=== PATIENT | male | born 1975 | race Caucasian/White ===

== ENCOUNTER 2017-07-06 15:12 | Emergency (ER) | payer SELFPAY ==
[2017-07-06 15:23] VITALS: BP 146/95; PULSE 81; TEMP 98.5; BMI 44.6
--- NOTE | 2017-07-06 16:31 | PDOC ---
History of Present Illness - General Chief Complaint: Eye Problem Stated Complaint: EYE PROBLEM Time Seen by Provider: 07/06/17 15:50 - History of Present Illness Initial Comments: 07/06/17 16:22 CHIEF COMPLAINT: R eye problem HISTORY OF PRESENT ILLNESS: 41 yo M with no significant PMH presents to fast track with redness to R eye. Patient reports that yesterday he "noticed a little bit of redness" to his right eye, and he bought some Visine lubricating drops for use. However he woke up this morning and noticed that his eye had become much worse. He denies any trauma, injury, pain or loss of vision to the eye. No recent travel or sick contacts. PAST MEDICAL HISTORY: Denies past medical history FAMILY HISTORY: Denies SOCIAL HISTORY: Denies tobacco, alcohol, illicit drug use. SURGICAL HISTORY: Denies ALLERGIES: No known drug allergies REVIEW OF SYSTEMS General/Constitutional: Denies fever or chills. Denies weakness, weight change. HEENT: Redness to R eye. Denies change in vision. Denies ear pain or discharge. Denies sore throat. Cardiovascular: Denies chest pain or shortness of breath. Respiratory: Denies cough, wheezing, or hemoptysis. Gastrointestinal: Denies nausea, vomiting, diarrhea or constipation. Denies rectal bleeding. Genitourinary: Denies dysuria, frequency, or change in urination. Musculoskeletal: Denies joint or muscle swelling or pain. Denies neck or back pain. Skin and breasts: Denies rash or easy bruising. PHYSICAL EXAM General Appearance: Well-appearing, appropriately dressed. No apparent distress. HEENT: Significant subconjunctival hemorrhage to medial aspect of R eye. No globe rupture. EOMI, PERRLA, normal voice. No conjunctival pallor. No photophobia, scleral icterus. Respiratory/Chest: Lungs CTAB. Cardiovascular: RRR. S1, S2. Musculoskeletal/Extremities: Normal inspection. FROM of all extremities, normal capillary refill. Pelvis Stable. No CVA tenderness. No tenderness to extremities, pedal edema, swelling, erythema or deformity. Integumentary: Appropriate color, dry, warm. No cyanosis, erythema, jaundice or rash Neurologic: collar stitcher II-XII intact. Fully oriented, alert. Appropriate mood/affect. Motor strength 5/5. No appreciable EOM palsy, facial droop or sensory deficit. Past History - Past Medical History Allergies/Adverse Reactions: Allergies Allergy/AdvReac Type Severity Reaction Status Date / Time No Known Allergies Allergy Verified 07/06/17 15:23 Home Medications: Ambulatory Orders NK [No Known Home Medication] 07/06/17 HTN: (?) - Suicide/Smoking/Psychosocial Hx Smoking History: Never smoked Information on smoking cessation initiated: No Hx Alcohol Use: No Drug/Substance Use Hx: No Substance Use Type: None *Physical Exam - Vital Signs Last Vital Signs Temp Pulse Resp BP Pulse Ox 98.5 F 81 18 146/95 99 07/06/17 15:20 07/06/17 15:20 07/06/17 15:20 07/06/17 15:20 07/06/17 15:20 *DC/Admit/Observation/Transfer Diagnosis at time of Disposition: Subconjunctival hemorrhage of right eye - Discharge Dispostion Disposition: HOME Condition at time of disposition: Stable Admit: No - Referrals Referrals: Quinn Davis MD [Staff Physician] - - Patient Instructions Printed Discharge Instructions: DI for Subconjunctival Hemorrhage Additional Instructions: Please follow up with ophthalmology as discussed. If you develop any pain, loss of vision, or any new or worsening symptoms, please return to the ER.
== END 2017-07-06 16:36 | disposition home or self-care (01) ==
LOC: JERFT 15:12
DX: H11.31 Conjunctival hemorrhage, right eye (principal); R05 Cough
CPT/HCPCS: 99281-25